=== PATIENT | male | born 1965 | race Two or more races ===

== ENCOUNTER 2021-05-28 20:47 | Emergency (ER) | payer MEDICAID, OTHER ==
[~2021-05-28] VITALS: Ht 190.5 cm; Wt 122.5 kg
[2021-05-28 20:47] VITALS: BP 124/82
== END 2021-05-28 21:38 | disposition left against medical advice (07) ==
LOC: ER 20:51
DX: R07.89 Other chest pain (principal); Z53.21 Procedure and treatment not carried out due to patient leaving prior to being seen by health care provider
CPT/HCPCS: 93005

== ENCOUNTER 2023-05-14 15:00 | Emergency (ER) | payer MEDICAID ==
[~2023-05-14] VITALS: Ht 190.5 cm; Wt 122.7 kg
[2023-05-14 15:54] LABS: Basophils # (auto) 0.1 10 ^3/uL (0-0.2); Eosinophils # (auto) 0 10 ^3/uL (0-0.8); Eosinophils % (auto) 0.2 % (0.0-7.0); Lymphocytes # (auto) 2.7 10 ^3/uL (0.4-5.4); Mean Corpuscular Hemoglobin 29.3 pg (28.0-32.0); Monocytes # (auto) 0.9 10 ^3/uL (0-1.3); Monocytes % (auto) 4.5 % (0.0-12.0); Red Cell Distribution Width 16.7 % (11.8-14.3)
[2023-05-14 15:58] LABS: Basophils % (auto) 0.6 % (0.0-2.0); Hematocrit 28.4 % (41.0-53.0); Hemoglobin 9.2 g/dL (13.5-17.5); Lymphocytes % (auto) 13.7 % (10.0-50.0); Mean Corpuscular Hgb Conc. 32.5 g/dL (32.0-36.0); Neutrophils # (auto) 15.7 10 ^3/uL (1.6-8.6); Red Blood Cells 3.16 10^6/uL (4.5-5.90); White Blood Cell 19.4 10^3/uL (4.4-10.8)
[2023-05-14 16:11] LABS: Alanine Aminotransferase 53 U/L (7-40); Albumin 3.8 g/dL (3.2-4.8); Alkaline Phosphatase 669 U/L (46-116); Anion Gap 10 (5-15); Aspartate Aminotransferase 70 U/L (13-40); BUN/Creatinine Ratio 14.6 (10.0-20.0); Blood Urea Nitrogen 12 mg/dL (9-23); Carbon Dioxide 23 mmol/L (20-30); Chloride 101 mmol/L (98-107); Glucose 133 mg/dL (74-106); Potassium 4.2 mmol/L (3.5-5.1); Sodium 134 mmol/L (136-145)
[2023-05-14 16:12] LABS: Bilirubin, Total 1.3 mg/dL (0.2-1.0); Total Protein 8.7 g/dL (5.7-8.2)
[2023-05-14 16:20] LABS: INR 1.31 (0.9-1.15); Partial Thromboplastin Time 31.4 SEC (24.5-34.5); Prothrombin Time 13.5 sec (9.3-11.8)
[2023-05-14] MEDS ORDERED: LIDOCAINE 1% (LOCAL ANESTH.) PF 5ml SDV ID ONE (18:00)
[2023-05-14 18:51] VITALS: BP 99/68; PULSE 116; RESP 22; TEMP 97.8; O2SAT 96
[2023-05-14] MEDS ORDERED: SODIUM CHLOR 0.9% PF (SALINE LOCK) 10ML VIAL/SYR IV SCH (22:00)
== END 2023-05-14 20:34 | disposition home or self-care (01) ==
LOC: ER 15:00
DX: T82.898A Other specified complication of vascular prosthetic devices, implants and grafts, initial encounter (principal); D72.829 Elevated white blood cell count, unspecified; E78.5 Hyperlipidemia, unspecified; I10 Essential (primary) hypertension; Z87.440 Personal history of urinary (tract) infections; Z79.899 Other long term (current) drug therapy; Z79.01 Long term (current) use of anticoagulants
CPT/HCPCS: 36415; 36569; 71045; 80053; 85025; 85610; 85730; 99285; C1751; J7050